=== PATIENT | male | born 1960 | race Caucasian/White ===

== ENCOUNTER 2023-10-24 08:59 | Emergency (ER) | payer BC, SELFPAY ==
[2023-10-24 08:54] VITALS: BP 127/79; PULSE 82; RESP 18; TEMP 36.9; O2SAT 97
[2023-10-24 09:07] VITALS: O2SAT 98
--- NOTE | 2023-10-24 09:12 | ED.ALLEREA ---
HPI - Allergic Reaction General Chief complaint: Allergic Reaction Stated complaint: allergic reaction Time Seen by Provider: 10/24/23 09:01 History of Present Illness HPI narrative: 3-year-old male with a known history of any allergens including grass, pollen, cats and dogs reports via EMS for evaluation with his family at bedside after an allergic reaction that occurred approximately 1 hour prior to arrival. Patient is traveling from [facility] to [place]. States around 715 this a.m., he ate a turkey sandwich and shortly after began experiencing left swelling. Then around 8:00 a.m., he began having a cough and difficulty breathing, then developed hives and itchiness throughout his body. He had an experience like this a few years ago and was prescribed an EpiPen. His family administer the EpiPen at 8:15am and called 911. Pt was transferred to the ED. upon my evaluation, patient is completely asymptomatic. He states he feels at his baseline. He denies current difficulty breathing, cough, abdominal pain, nausea or vomiting, hives or pruritus. Patient states his PCP has recently suggested that he be evaluated by an [place]ai[place] maori. Related Data Allergies Allergy/AdvReac Type Severity Reaction Status Date / Time No Known Allergies Allergy Verified 10/24/23 09:04 Review of Systems Review of Systems: CONSTITUTIONAL: Denies fever, chills, or sweats. EYES: Denies visual changes, redness, or discharge. ENT: See HPI CARDIOVASCULAR: Denies chest pain, palpitations, or edema. RESPIRATORY: See HPI GASTROINTESTINAL: Denies abdominal pain, nausea, vomiting, or diarrhea. GENITOURINARY: Denies dysuria or hematuria. SKIN: Denies rash or itching. MUSCULOSKELETAL: Denies back pain, joint pain, or myalgia. NEUROLOGIC: Denies headache, numbness, or weakness. PSYCHIATRIC: Denies anxiety or depression. Exam Narrative: GENERAL: Well-appearing, well-nourished, and in no acute distress. Patient resting comfortably in exam bed. He is pleasant and conversational. Speaking in full sentences. HEAD: Normocephalic, atraumatic. EYES: PERRLA and EOMI. ENT: Nares clear, no rhinorrhea or epistaxis. Mucous membranes moist. No lip, tongue or pharyngeal swelling. No airway compromise. NECK: Supple. CHEST: Clear to auscultation. No respiratory distress. No wheezing throughout. HEART: Regular rate and rhythm. No murmur heard. Normal peripheral pulses. ABDOMEN: Soft, nontender, nondistended, normal active bowel sounds. EXTREMITIES: Normal range of motion. No edema. SKIN: Warm, dry, no rash. No urticaria. NEURO: No focal deficits. Alert and oriented x3 Course Vital Signs Vital signs: Vital Signs Temperature 98.5 F 10/24/23 08:54 Pulse Rate 82 10/24/23 08:54 Respiratory Rate 18 10/24/23 08:54 Blood Pressure 127/79 10/24/23 08:54 Pulse Oximetry 97 10/24/23 08:54 Oxygen Delivery Room Air 10/24/23 08:54 Temperature 98.5 F 10/24/23 08:54 Pulse Rate 72 10/24/23 10:54 Respiratory Rate 21 H 10/24/23 10:54 Blood Pressure 120/81 10/24/23 10:54 Pulse Oximetry 98 10/24/23 10:54 Oxygen Delivery Room Air 10/24/23 09:07 MDM - Allergic Reaction MDM Narrative Medical decision making narrative: 63-year-old male with known allergies reports for evaluation via EMS after allergic reaction shortly after eating a turkey sandwich. See HPI for further history. EpiPen was administered by family and 911 was called. Upon my evaluation, patient is asymptomatic and is well-appearing. No signs of current anaphylaxis. His vitals are stable, no hypotension. Plan to administer steroids, Pepcid and Benadryl and to observe the patient for a total of 3 hours after EpiPen was administered. Patient observed for a total of 3 hours after EpiPen was administered. He continues to be asymptomatic, vitals remained stable. Plan to discharge him home with EpiPen refill. Encouraged to follow-up closely with his PCP who plans to refer
[2023-10-24] MEDS: SODIUM CHLORIDE 0.9% IV 1,000 ML 999 ML IV CONT (09:25)
[2023-10-24] MEDS: diphenhydrAMINE HCl INJ 50 MG/ML VIAL 25 MG IV PUSH (09:29)
[2023-10-24] MEDS: FAMOTIDINE 20 MG/2 ML VIAL IV PUSH (09:29)
[2023-10-24 10:16] VITALS: BP 128/78; PULSE 62; RESP 15; O2SAT 97
[2023-10-24 10:54] VITALS: BP 120/81; PULSE 72; RESP 21; O2SAT 98
== END 2023-10-24 11:21 | disposition home or self-care (01) ==
PROVIDERS: Emergency Provider Physician Assistant
DX: T78.40XA Allergy, unspecified, initial encounter (principal); X58.XXXA Exposure to other specified factors, initial encounter
CPT/HCPCS: 96361; 96374; 96375; 99284; J1100; J1200; J7030